=== PATIENT | female | born 1935 | race Caucasian/White ===

== ENCOUNTER 2016-08-12 11:57 | Inpatient (IN) | payer OTHER ==
[2016-08-12 12:07] VITALS: BMI 33.7
--- NOTE | 2016-08-12 12:25 | PDOC ---
History of Present Illness <JoseVivien - Last Filed: 08/12/16 16:10> - General History Source: Patient Exam Limitations: No Limitations - History of Present Illness Initial Comments: 08/12/16 12:32 81y F hx of htn, sz, cad? presents with celluitis, pt had lower extermitiy swelling and edema for the past week and since friday there was overlying erythema and increased amoun tof pain when she ambulates .she went to her PMD today who sent her to the ED for further mangaement of her cellulitis. THe pt denies any fever/chils, cp, sob, n/v, generalized weaknes,s diarrhea, dysuria. pt states she has had multiple vascular surgeries in the past. <Randal Rodriguez - Last Filed: 08/12/16 17:42> - General Chief Complaint: Wound Stated Complaint: PCP SENT, LEG PAIN Time Seen by Provider: 08/12/16 12:14 Past History <Vivien Garcia - Last Filed: 08/12/16 16:10> - Past Medical History Cardiac Disorders: Yes HTN: Yes Seizures: Yes - Surgical History Orthopedic Surgery: Yes (?hip surgery) - Psycho/Social/Smoking Cessation Hx Suicidal Ideation: No Smoking History: Former smoker Have you smoked in the past 12 months: No Information on smoking cessation initiated: No Hx Alcohol Use: No Drug/Substance Use Hx: No <Randal Rodriguez - Last Filed: 08/12/16 17:42> - Past Medical History Allergies/Adverse Reactions: Allergies Allergy/AdvReac Type Severity Reaction Status Date / Time No Known Allergies Allergy Verified 08/12/16 12:07 Home Medications: Ambulatory Orders NK [No Known Home Medication] 08/12/16 Review of Systems - Review of Systems Able to Perform ROS?: Yes Comments:: 08/12/16 12:33 Constitutional - no reported Fever, Chills, weakness, HEENT: no reported vision changes, sore throat Respiratory: no reported cough, sob, hemoptysis Cardiac: no reported chest pain, palpitations, light headedness, Abd/GI: no reported abd pain, nausea, vomiting, blood per rectum, melena, diarrhea : no reported dysuria, frequency, discharge Musculskelatal - +leg swelling, redness, no reported back pain, joint swelling skin - no reported bruising, erythema, rash neurological: no reported headache, numbness, focal weakness, tingling, ataxia, weakness hematologic: no reported anemia, easy bruising, easy bleeding <JenniferRandal - Last Filed: 08/12/16 17:42> *Physical Exam - Vital Signs Last Vital Signs Temp Pulse Resp BP Pulse Ox 97.7 F 107 H 18 149/88 93 L 08/12/16 12:02 08/12/16 12:02 08/12/16 12:02 08/12/16 12:02 08/12/16 12:15 <Vivien Garcia - Last Filed: 08/12/16 16:10> - Vital Signs Last Vital Signs Temp Pulse Resp BP Pulse Ox 97.7 F 107 H 18 149/88 93 L 08/12/16 12:02 08/12/16 12:02 08/12/16 12:02 08/12/16 12:02 08/12/16 12:02 - Physical Exam Comments: 08/12/16 12:34 GENERAL: The patient is awake, alert, and fully oriented, Nontoxic - in no acute distress. HEAD: Normocephalic, atraumatic. EYES: extraocular movements intact, sclera anicteric, conjunctiva clear. ENT: Normal voice, Moist mucous membranes. NECK: Normal range of motion, supple LUNGS: Breath sounds equal, clear to auscultation bilaterally. No wheezes, no rhonchi, no rales. HEART: Regular rate and rhythm, normal S1 and S2 without murmur, rub or gallop. ABDOMEN: Soft, nontender, normoactive bowel sounds. No guarding, no rebound. No CVA tenderness EXTREMITIES: +3 pitting edema with overlying erythema/induration, TTP b/l, L>R NEUROLOGICAL: No facial assymetry, Normal speech, PSYCH: Normal mood, normal affect. SKIN: Warm, Dry, normal turgor, <Ilya Rodriguezan - Last Filed: 08/12/16 17:42> Heart Score/ECG Review - ECG Impressions Comment:: 08/12/16 17:40 Twelve-lead EKG was performed and reviewed by me. Irregulraly irregular HR of 90 afib <JenniferRandal - Last Filed: 08/12/16 17:42> ED Treatment Course - LABORATORY CBC & Chemistry Diagram: 08/12/16 12:30 08/12/16 13:20 - ADDITIONAL ORDERS Additional order review: Laboratory Results 08/12/16 08/12/16 08/12/16 14:30 13:20 12:30 Sodium 141 Cancelled Potassium 5.5 H Cancelled Chloride 104 Cancelled Carbon Dioxide 28 Cancelled Anion Gap 9 Cancelled BUN 17 Cancelled Creatinine 0.8 Cancelled Creat Clearance w eGFR > 60 Cancelled Random Glucose 85 Cancelled Calcium 8.1 L Cancelled Total Bilirubin 0.9 Cancelled AST 62 H Cancelled ALT 45 Cancelled Alkaline Phosphatase 68 Cancelled B-Natriuretic Peptide Cancelled 2456.58 H Total Protein 7.0 Cancelled Albumin 3.2 L Cancelled 08/12/16 12:30 RBC 4.05 MCV 91.5 MCHC 33.0 RDW 13.4 MPV 8.7 Neutrophils % 76.8 Lymphocytes % 11.0 Monocytes % 10.0 Eosinophils % 1.6 Basophils % 0.6 - RADIOLOGY Radiograph Interpretation: 08/12/16 15:15 EXAM: RAD/CHEST X-RAY PORTABLE IMPRESSION: Imaging reveals rotation to the right, large heart, tortuous aorta, prominent hilar markings with some central congestive changes and increased markings at the right base which could represent a very early infiltrate. There is some atelectasis at the bases as well. The bones and soft tissues are intact. Correlation follow-up recommended. <Vivien Garcia - Last Filed: 08/12/16 16:10> - LABORATORY CBC & Chemistry Diagram: 08/12/16 12:30 08/12/16 13:20 - RADIOLOGY Radiology Studies Ordered: Category Date Time Status CHEST X-RAY PORTABLE* [RAD] Stat Radiology 08/12/16 12:25 Ordered <Randal Rodriguez - Last Filed: 08/12/16 17:42> Medical Decision Making - Medical Decision Making 08/12/16 14:59 A call was placed to Dr. Dana Gaviria. 08/12/16 15:33 Second call placed to Dr. Dana Gaviria. 08/12/16 16:08 Third call placed to Dr. Dana Gaviria. 08/12/16 16:[address] Dana Gaviria. Case was discussed. <Vivien Garcia - Last Filed: 08/12/16 16:10> - Medical Decision Making 08/12/16 14:35 81y F sent to the ED for evaluation of lower exterimty edema as well as overlying erythema/edema and concern for cllulitis. no systemic complaints. on exam pt does have celluitis howver his EKG also noted for new onset afib - suspect singh tmay be the inciting even tof her LE edema that was superinfected. will start pt on heparin will obtain US to r/o dvt 08/12/16 17:[address] gaviria agree with admission for further mangameenta of cellulitis and afib also agrees with heparinization will admit to telemetry duplex negative fo DVT Case discussed in detail with admitting physician including history, physical exam and ancillary studies. Admitting physician has assumed care for the patient, will follow all pending diagnostics and will complete the evaluation and treatment. <Randal Rodriguez - Last Filed: 08/12/16 17:42> *DC/Admit/Observation/Transfer - Attestations Scribe Attestion: 08/12/16 15:18 Documentation prepared by Vivien Garcia, acting as biomedical electronics technician for Randal Rodriguez MD. <Vivien Garcia - Last Filed: 08/12/16 16:10> - Discharge Dispostion Admit: Yes <Randal Rodriguez - Last Filed: 08/12/16 17:42> Diagnosis at time of Disposition: Cellulitis of leg without foot, left, Cellulitis of leg without foot, right Atrial fibrillation Qualifiers: Atrial fibrillation type: unspecified Qualified Code(s): I48.91 - Unspecified atrial fibrillation - Referrals
[2016-08-12 12:52] LABS: BASOPHIL 0.6 % (0-2.0); EOSINOPHIL 1.6 % (0-4.5); MCH 30.2 pg (25.7-33.7); MEAN CELL VOLUME 91.5 fl (80-96); MEAN PLT VOLUME 8.7 fl (7.5-11.1); NEUTROPHILS 76.8 % (42.8-82.8); PLATELET COUNT 281 K/MM3 (134-434); RDW 13.4 % (11.6-15.6)
[2016-08-12 13:55] LABS: ALBUMIN 3.2 g/dl (3.4-5.0); ALK PHOS 68 U/L (45-117); ANION GAP 9 (8-16); BILIRUBIN,TOTAL 0.9 mg/dL (0.2-1.0); CALCIUM 8.1 mg/dL (8.5-10.1); CO2 28 mmol/L (21-32); CREATININE 0.8 mg/dL (0.55-1.02); GLUCOSE,RANDOM 85 mg/dL (74-106); SGPT/ALT 45 U/L (12-78)
[2016-08-12 14:03] LABS: SGOT/AST 62 U/L (15-37)
[2016-08-12] MEDS ORDERED: VANCOMYCIN 1,000 MG in DEXTROSE 5%-WATER - 250 ML IVPB ONE (14:34)
[2016-08-12 15:07] LABS: INR 1.2 (0.82-1.09); PROTHROMBIN TIME (PATIENT) 13.3 SEC (9.98-11.88)
[2016-08-12] MEDS ORDERED: HEPARIN NA (PORCINE) 5,000 UNITS/ML 1ML VIAL IVPUSH ONE (15:54)
--- NOTE | 2016-08-12 16:26 | HP ---
Admitting History and Physical - Primary Care Physician PCP: ? - Admission Chief Complaint: CELLULITIS. CONSTIPATION History Source: Patient, Medical Record Limitations to Obtaining History: No Limitations - Smoking History Smoking history: Former smoker Have you smoked in the past 12 months: No - Alcohol/Substance Use Hx Alcohol Use: No Home Medications - Allergies Allergies/Adverse Reactions: Allergies Allergy/AdvReac Type Severity Reaction Status Date / Time No Known Allergies Allergy Verified 08/12/16 12:07 - Home Medications Home Medications: Ambulatory Orders NK [No Known Home Medication] 08/12/16 Review of Systems - Review of Systems Constitutional: denies: Chills, Fever Cardiovascular: denies: Chest Pain Respiratory: denies: SOB Gastrointestinal: denies: Abdominal Pain Integumentary: reports: Blister, Erythema, Rash Physical Examination Vital Signs: Vital Signs Temperature 97.7 F 08/12/16 12:02 Pulse Rate 107 H 08/12/16 12:02 Respiratory Rate 18 08/12/16 12:02 Blood Pressure 149/88 08/12/16 12:02 O2 Sat by Pulse Oximetry (%) 93 L 08/12/16 12:15 Findings/Remarks: EXAMINED IN ED ANXIOUS C/O NO BM LOOKS UNCOMFORTABLE Cardiovascular: Yes: Regular Rate and Rhythm, S1, S2 Respiratory: Yes: CTA Bilaterally Gastrointestinal: Yes: Normal Bowel Sounds, Soft Edema: Yes Integumentary: Yes: Erythema, Other (BLISTERING. B/L LOWER LEGS) Imaging - Results Chest X-ray: Report Reviewed Ultrasound: Report Reviewed Problem List - Problems (1) Atrial fibrillation Code(s): I48.91 - UNSPECIFIED ATRIAL FIBRILLATION Qualifiers: Qualified Code(s): I48.91 - Unspecified atrial fibrillation (2) Cellulitis of leg without foot, left Code(s): L03.116 - CELLULITIS OF LEFT LOWER LIMB (3) Cellulitis of leg without foot, right Code(s): L03.115 - CELLULITIS OF RIGHT LOWER LIMB (4) HTN (hypertension) with goal to be determined Code(s): I10 - ESSENTIAL (PRIMARY) HYPERTENSION (5) Seizure Code(s): R56.9 - UNSPECIFIED CONVULSIONS Assessment/Plan 81y F hx of htn, sz, cad? presents with celluitis, pt had lower extermitiy swelling and edema for the past week and since friday there was overlying erythema and increased amoun tof pain when she ambulates .she went to her PMD today who sent her to the ED for further mangaement of her cellulitis. THe pt denies any fever/chils, cp, sob, n/v, generalized weaknes,s diarrhea, dysuria. pt states she has had multiple vascular surgeries in the past. (1) Atrial fibrillation Code(s): I48.91 - UNSPECIFIED ATRIAL FIBRILLATION Qualifiers: Atrial fibrillation type: unspecified Qualified Code(s): I48.91 - Unspecified atrial fibrillation IV HEPARIN (2) Cellulitis of leg without foot, left Code(s): L03.116 - CELLULITIS OF LEFT LOWER LIMB IV ABx ID CONSULTED DUPLEX -> NO DVT. GROIN 3cm LN DR KAY ON CASE -> BIOPSY? (3) Cellulitis of leg without foot, right Code(s): L03.115 - CELLULITIS OF RIGHT LOWER LIMB (4) HTN (hypertension) with goal to be determined Code(s): I10 - ESSENTIAL (PRIMARY) HYPERTENSION CARDIO CONSULTED F/U LABS (5) Seizure Code(s): R56.9 - UNSPECIFIED CONVULSIONS NOT ON AED ZOO CARETAKER FM
[2016-08-12] MEDS ORDERED: HEPARIN NA (PORCINE) 5,000 UNITS/ML 1ML VIAL ONE ×2 (16:51→23:08)
[2016-08-12] MEDS ORDERED: VANCOMYCIN 1 GRAM (PRE-DOCKED) 250 ML IVPB ONE (16:51)
[2016-08-12] MEDS: HEPARIN INFUSION - 500 ML IVPB SCH ×2 (16:52→23:13)
[2016-08-12] MEDS ORDERED: HEPARIN INFUSION - 500 ML IVPB ONE (16:52)
[2016-08-12] MEDS ORDERED: SODIUM PHOSPHATE/NA BIPHOS 133 ML ENEMA PR PRN (17:55)
--- NOTE | 2016-08-12 17:56 | CONSULT ---
- Consultation REQUESTING PROVIDER: CONSULT REQUEST: We have been asked to surgically evaluate this patient for ( specify). PCP: Dana Serna HISTORY OF PRESENT ILLNESS: Called to mari 81yo female with PMHx noted below. Sent to [facility] ED from her PCPs office for further evaluation of new onset afib as well as worsening of her b/l LE cellulitis. Pt has bilat LE swelling and edema for the past week and since friday there was overlying erythema and increased amount of pain when she ambulates. Denies n/v/f/c, diaphoresis, generalized weakness. Denies CP, palpitations, irregular heart rate or ightheadedness. Denies SOB, [place] or wheezing. Denies flank pain or hematuria. Denies paresthesias, dizziness or unsteady gait (albeit painful). Denies recent trauma to her LE. Venous duplex 08/12: negative for dvt. + soft tissue edema b/l le. PMHx: HTN, Sz PSHx: Hip surgery - femoral rods. Unknown surgery to LLE (calf) HOME MEDS: Denies any. ALLERGIES: NKDA ROS: CONSTITUTIONAL: Absent: See above. fever, chills, , malaise, loss of appetite, weight change CARDIOVASCULAR: Absent: See above. syncope RESPIRATORY: Absent: See above. stridor, hemoptysis GASTROINTESTINAL:Absent: See above. abd pain, abdominal distension, constipation , melena, hematochezia GENITOURINARY: Absent: See above. dysuria, frequency, urgency, hesitancy MUSCULOSKELETAL: Absent: myalgia, arthralgia, back pain, neck pain SKIN: Absent: See above. HEMATOLOGIC/IMMUNOLOGIC: Absent: easy bleeding, easy bruising, lymphadenopathy NEUROLOGIC: Absent: See above. BALES, focal weakness, seizure, mental status changes, PSYCHIATRIC: Absent: anxiety, depression, suicidal or homicidal ideation, hallucinations. PE: GENERAL: Awake, alert, oriented, in no acute distress. HEAD: Normal with no signs of trauma. EYES: PERRL, sclera anicteric, conjunctiva clear. NECK: Normal ROM, supple without lymphadenopathy, JVD, or masses. LUNGS: CTA b/l anteriorly HEART: afib ABDOMEN: Soft, NT. ND, Normoactive bs x4, no guarding, no rebound, no masses. No organomegaly. MUSCULOSKELETAL: Normal ROM at all joints. No bony deformities or tenderness. No CVA tenderness. UE: 2+ pulses, warm, well-perfused. No cyanosis. Cap refill <2 seconds. No peripheral edema. LE: Palpable DP/PT bilat. Severe cellultis from ankles moving proximally to just below knees. Warm to touch. Erythematous. Serous drainage. No open lesions. NEUROLOGICAL: Normal speech, gait not observed. PSYCH: Cooperative. Good eye contact. Appropriate mood and affect. SKIN: Last Vital Signs Temp Pulse Resp BP Pulse Ox 97.7 F 107 H 18 149/88 93 L 08/12/16 12:02 08/12/16 12:02 08/12/16 12:02 08/12/16 12:02 08/12/16 12:15 CBC, BMP 08/12/16 12:30 08/12/16 13:20 INR, PTT INR 1.20 (0.82-1.09) H 08/12/16 13:40 Hepatic Panel Total Bilirubin 0.9 mg/dL (0.2-1.0) 08/12/16 13:20 AST 62 U/L (15-37) H 08/12/16 13:20 ALT 45 U/L (12-78) 08/12/16 13:20 Alkaline Phosphatase 68 U/L (45-117) 08/12/16 13:20 Albumin 3.2 g/dl (3.4-5.0) L 08/12/16 13:20 Assessment/Plan: Severe cellultis - IV abx - ID consult - Recommend Silvadene to both LE, wrap kerlix. No compression dressings at this time as we need to monitor erythematous skin - bilat LE elevation - No surgical intervention at this time - Above plan discussed with Dr. Archibald and agrees. Visit type - Case Type Case Type: ED Admission - Emergency Emergency Visit: Yes ED Registration Date: 08/12/16 Care time: The patient presented to the Emergency Department on the above date and was hospitalized for further evaluation of their emergent condition. - New patient This patient is new to me today: Yes Date on this admission: 08/12/16
[2016-08-12] MEDS: POLYETHYLENE GLYCOL 3350 119 GM BTL PO SCH (19:09)
[2016-08-12] MEDS: SENNOSIDES 8.6MG TABLET (FP) PO SCH (22:36)
[2016-08-12] MEDS ORDERED: HEPARIN NA (PORCINE) 5,000 UNITS/ML 1ML VIAL IVPUSH PRN ×2 (23:42)
--- NOTE | 2016-08-13 00:21 | EKG ---
Test Reason : Blood Pressure : / mmHG Vent. Rate : 090 BPM Atrial Rate : 052 BPM P-R Int : 000 ms QRS Dur : 088 ms QT Int : 398 ms P-R-T Axes : 000 001 009 degrees QTc Int : 486 ms ATRIAL FIBRILLATION ABNORMAL ECG NO PREVIOUS ECGS AVAILABLE Confirmed by YVAN LEVIN MD ([id number]) on 08/13/2016 12:20:56 AM Referred By: Confirmed By:YVAN LEVIN MD
[2016-08-13 07:17] LABS: BASOPHIL 0.7 % (0-2.0); EOSINOPHIL 1.6 % (0-4.5); MCH 30.7 pg (25.7-33.7); MCHC 33.7 g/dl (32.0-36.0); MEAN CELL VOLUME 90.9 fl (80-96); MEAN PLT VOLUME 8.8 fl (7.5-11.1); PLATELET COUNT 273 K/MM3 (134-434); RDW 13.5 % (11.6-15.6); WHITE BLOOD COUNT 8.8 K/mm3 (4.0-10.0)
[2016-08-13 07:40] LABS: ALBUMIN 2.8 g/dl (3.4-5.0); ANION GAP 10 (8-16); CALCIUM 7.8 mg/dL (8.5-10.1); CO2 27 mmol/L (21-32); CREATININE 0.6 mg/dL (0.55-1.02); GLUCOSE,RANDOM 105 mg/dL (74-106); SGOT/AST 22 U/L (15-37); SGPT/ALT 33 U/L (12-78)
[2016-08-13 07:44] LABS: ALK PHOS 66 U/L (45-117); BILIRUBIN,TOTAL 1.1 mg/dL (0.2-1.0); TOT PROT 6.2 g/dl (6.4-8.2); TROPONIN I < 0.02 ng/ml (0.00-0.05)
[2016-08-13 08:29] LABS: CHOLESTEROL 156 mg/dL (50-200); LDL CHOLESTEROL (ONLY SJRH) 96 mg/dL (5-100)
[2016-08-13] MEDS: HEPARIN INFUSION - 500 ML IVPB SCH ×2 (09:09→12:27)
[2016-08-13] MEDS: POLYETHYLENE GLYCOL 3350 119 GM BTL PO SCH (09:10)
[2016-08-13 09:35] LABS: URINE APPEARANCE CLEAR; URINE BILIRUBIN NEGATIVE (NEGATIVE); URINE COLOR YELLOW; URINE GLUCOSE (UA) NEGATIVE (NEGATIVE); URINE KETONE NEGATIVE (NEGATIVE); URINE LEUK ESTERASE NEGATIVE (NEGATIVE); URINE NITRITE NEGATIVE (NEGATIVE); URINE PROTEIN NEGATIVE (NEGATIVE); URINE UROBILINOGEN NEGATIVE E.U./dl (0.2-1.0)
[2016-08-13 09:36] LABS: URINE BLOOD 2+ (NEGATIVE)
[2016-08-13 09:38] LABS: URINE RBC 4 /hpf (0-3); URINE WBC 2 /hpf (3-5)
[2016-08-13] MEDS ORDERED: INFLUENZA VACCINE 45 MCG/0.5 ML (MDV 16-17) IM ONE (10:00)
[2016-08-13] MEDS ORDERED: PNEUMOC 13-VAL CONJ-DIP CRM/PF 0.5 ML DISP.SYRIN IM ONE (10:00)
--- NOTE | 2016-08-13 10:02 | PN ---
Progress Note (short form) - Note Progress Note: ID consult dictated imp/reccd 81 year old female from home (lives alone) with SOB/LE edema/bilateral LE erythema went to her PMD and was found to be in new onset afib no history of recent admissions to the hospital, no history of MRSA no recent antibiotics no fevers or chills normal WBC bilateral cellulitis bilateral edema new onset AFIB CHF f/u cultures cefazolin cardiology consult echo
--- NOTE | 2016-08-13 10:48 | CONS ---
DATE OF CONSULTATION: REQUESTING PHYSICIAN: Dana Serna MD HISTORY: This is a 81-year-old woman. She was sent from her PMDs office with new onset atrial fibrillation. She went to see him, and she had bilateral leg swelling as well as erythema of the legs. She was short of breath and noted to be in atrial fibrillation, which was new. She was sent to the emergency room. She is a very poor historian. She states she lives alone. She is . She uses a walker. Otherwise, she has been well. She appears mildly short of breath, which she says is her baseline. She denies any chest pain or abdominal pain. She has had no fever or chills. She has had no scratches to her legs. She has no pets. There has been no diarrhea or dysuria. PAST MEDICAL HISTORY: Noted to be coronary artery disease, hypertension. She has a history of seizures. She has had bilateral hip surgery. She states she [facility] and that she has had surgery on her left leg many years ago, and it is unclear why. FAMILY HISTORY: Noncontributory. ALLERGIES: She has no known drug allergies. MEDICATIONS: She does not know what medications she takes. SOCIAL HISTORY: She is . She lives alone. She uses a walker. She is a former smoker. There is no history of any substance abuse. REVIEW OF SYSTEMS: She notes intermittent cough. She does not know if she has had her vaccines. She has no nausea, vomiting, diarrhea, dysuria, chest pain, abdominal pain, fevers, or chills. She has no pets at home. PHYSICAL EXAMINATION: Vital Signs: She is afebrile. Temperature is 98.1, T-max is 99.5, pulse 95, blood pressure 122/70, respiratory rate 22. She is saturating 95% on 2 L. HEENT: She is normocephalic. Eyes are anicteric. Neck: Supple. Lungs: Bibasilar crackles. Heart: Tachycardic. Abdomen: Soft and nontender. Extremities: Notable for bilateral lower extremity cellulitis. She has bilateral dorsalis pedis pulses. Legs are erythema from above the ankle to below the knees bilaterally. She has leg swelling as well. LABORATORY DATA: Her labs are notable for a white count 8.8, hemoglobin 11.9, platelets 273, INR 1.2, BUN 13, creatinine 0.6. LFTs are normal. Urinalysis is negative for leukocyte esterase and has 2 white cells. Blood and urine cultures are pending. Duplex studies of her legs: There is no evidence of DVT bilaterally. Chest x-ray shows cardiomegaly and some mild congestion and atelectasis of both bases. In summary, this is a 81-year-old woman with bilateral cellulitis, bilateral lower extremity edema, new onset atrial fibrillation, and I suspect CHF. I would follow up her cultures, which have been sent. I would treat her with cefazolin. There is no history of any recent antibiotics. No history of recent admissions to the hospital. No history of MRSA. On exam, there is no history of any abscess formation. She appears to have cellulitis of both her legs. Would follow up with Cardiology and would check an echocardiogram. Further recommendations to follow based on clinical course. Saleem [id number]
[2016-08-13] MEDS: CEFAZOLIN 2 GM/D5W 50 ML IVPB SCH ×2 (11:15→17:25)
--- NOTE | 2016-08-13 11:31 | PN ---
Progress Note (short form) - Note Progress Note: PULMONARY CONSULTATION DICTATED 08/13/16 IMP DYSPNEA CHF NEW ONSET AFIB BILATERAL LOWER EXT CELLULITIS ASHD HTN H/O SEIZURE DISORDER PLAN ANTIBIOTICS PER ID LASIX ANTICOAGULATION NASAL O2 INHALED BRONCHODILATORS PRN ECHO RATE CONTROL F/U CHEST X-RAY DR LANCASTER
--- NOTE | 2016-08-13 11:44 | PN ---
Progress Note (short form) - Note Progress Note: Pt seen and examined this am. She has no complaints pain. Vital Signs Period Temp Pulse Resp BP Sys/Silver Pulse Ox Last 24 Hr -99.5 F-98.1 F 95-113 18-22 122-149/70-88 93-96 PE: GEN: alert and appears comfortable LE: +2 dp pulses, erythema from the knee to the ankle b/l. On the left side he erythema seems to be decreased based on skin marking. No open to the skin or drainage noted. CBC, BMP 08/13/16 05:35 08/13/16 05:35 A/P: 81 yo female with cellulitis Cont IV abx as per ID, IV cefazolin Surgery to follow the patient Leg elevation at all times, in bed an oob to chair.
--- NOTE | 2016-08-13 12:13 | CONS ---
DATE OF CONSULTATION: 08/13/2016 REFERRING PHYSICIAN: Dana Serna MD HISTORY: The patient is a 81-year-old white female with a past medical history of ASHD, hypertension, seizures, history of bilateral hip surgery and also a history of lower extremity edema and currently followed at the [facility], nonsmoker admitted to [facility] with increasing shortness of breath, increasing lower extremity edema and erythema, and new onset atrial fibrillation. The patient went to Dr. Serna's yesterday with the complaint of increasing shortness of breath and dyspnea on exertion and lower extremity edema. At the time, she was noted to be new onset atrial fibrillation at which time she was advised to go to the emergency room. She denied any complaints of chest pain, nausea, vomiting, diaphoresis, fevers, or chills. Even though she is noted to be in atrial fibrillation, she is also noted to have elevated BMP and felt to be in CHF. She was admitted to telemetry unit for further monitoring. She denies any history of occupational exposures to chemicals or fumes. There is no history of DVT or PE in the past. In the emergency room, she underwent a duplex of lower extremities, which was negative for DVT. She does state that she sleeps on 2 pillows. She is unsure whether or not she has orthopnea. She does complain of dyspnea on exertion. She denies any hemoptysis. She denies any chronic cough. PAST MEDICAL HISTORY: Again, includes ASHD, hypertension. REVIEW OF SYSTEMS: Positive orthopnea. No chest pain, no palpitations. Positive shortness of breath. Positive cough nonproductive. No fevers, no chills. Positive increasing lower extremity edema and erythema. 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 No ETOH. CURRENT MEDICATIONS: Include Ancef, heparin, MiraLAX, Senna, and Fleet enema. PHYSICAL EXAMINATION: General: The patient is a well-developed, well-nourished female. Mildly confused but in no acute distress. Vital Signs: She is currently afebrile. Blood pressure 130/70, respiratory rate 22, O2 saturation 90% on room air and 96% on 2 L. HEENT: Normocephalic and atraumatic. Neck: Supple. Heart: Irregularly irregular with normal S1, S2. Chest: Bilateral crackles. Abdomen: Soft. Bowel sounds are positive. Extremities: Bilateral lower extremity edema and erythema. LABORATORIES: BUN 13, creatinine 0.6. BNP 2456. INR 1.20. WBCs 8.8, hemoglobin 11.9, hematocrit 35.3, platelet count 273,000. Chest x-ray reveals bilateral pulmonary vascular congestion, cardiomegaly, increased markings at the right base. IMPRESSION: 1. Dyspnea most likely secondary to decompensated congestive heart failure. 2. New onset atrial fibrillation 3. Bilateral lower extremity cellulitis. 4. Hypertension. 5. Arteriosclerotic heart disease. PLAN: IV Lasix. Inhaled bronchodilators. Supplemental O2. Obtain follow up chest x-ray. Antibiotic therapy as per Infectious Disease. Echocardiogram. Rate control as per Cardiology. PEG LANCASTER M.D. [id number]
--- NOTE | 2016-08-13 13:57 | CON.CARD ---
Consult Consult Specialty:: Cardiology Referred by:: Dr. Rodriguez, Dr. Neville Reason for Consultation:: New onset atrial fibrillation - History of Present Illness Chief Complaint: Leg swelling and pain, new afib History of Present Illness: 81 yo female with reported HTN (however patient denies this and is currently not on any BP meds), who was admitted with lower extermitiy swelling and pain since last Friday and was sent from PMD's office (Dr. Serna) yesterday to [facility] ED. Patient is currently being treated for cellulitis. In the ED, patient was noted to be in new onset atrial fibrillation. Patient denies chest pain or palpitations, but does report some exertional dyspnea but patient is also not physically active. Denies melena, hematochezia, hematemesis, or hematuria. Patient denies any prior cardiac history. She only reports long standing history of lower extremity edema and was previously under the care a wound clinic at some point in the past. Patient was started on heparin gtt for new onset afib and admitted to telemetry floor. - History Source History Provided By: Patient Limitations to Obtaining History: No Limitations - Past Medical History ...: No - Alcohol/Substance Use Hx Alcohol Use: No - Smoking History Smoking history: Former smoker Have you smoked in the past 12 months: No Home Medications - Allergies Allergies/Adverse Reactions: Allergies Allergy/AdvReac Type Severity Reaction Status Date / Time No Known Allergies Allergy Verified 08/12/16 12:07 - Home Medications Home Medications: Ambulatory Orders NK [No Known Home Medication] 08/12/16 Family Disease History - Family Disease History Family History: Denies (premature CAD or SCD) Family Disease History: CA: Sister (breast cancer) Review of Systems - Review of Systems Constitutional: reports: No Symptoms Eyes: reports: No Symptoms HENT: reports: No Symptoms Neck: reports: No Symptoms Cardiovascular: reports: Edema. denies: Chest Pain, Palpitations, Shortness of Breath Respiratory: reports: No Symptoms Gastrointestinal: reports: No Symptoms Genitourinary: reports: No Symptoms Musculoskeletal: reports: Extremity Pain Integumentary: reports: Erythema (bilateral legs) Neurological: reports: No Symptoms Endocrine: reports: No Symptoms Hematology/Lymphatic: reports: No Symptoms Psychiatric: reports: No Symptoms Vital Signs: Vital Signs Temperature 98 F 08/13/16 09:00 Pulse Rate 96 H 08/13/16 09:00 Respiratory Rate 22 08/13/16 09:00 Blood Pressure 130/70 08/13/16 09:00 O2 Sat by Pulse Oximetry (%) 96 08/13/16 09:00 Constitutional: Yes: Well Nourished, No Distress, Obese Eyes: Yes: Conjunctiva Clear, EOM Intact HENT: Yes: Atraumatic, Normocephalic Respiratory: Yes: CTA Bilaterally Gastrointestinal: Yes: Normal Bowel Sounds, Soft. No: Tenderness JVD: No Heart Sounds: Yes: S1, S2 Murmur: No: Systolic Murmur Extremities: Yes: Erythema (below knees) Edema: Yes Edema: LLE: 2+, RLE: 2+ Neurological: Yes: Alert, Oriented Psychiatric: Yes: WNL - Other Data Labs, Other Data: CBC, BMP 08/13/16 05:35 08/13/16 05:35 INR, PTT INR 1.20 (0.82-1.09) H 08/12/16 13:40 Troponin, BNP 08/13/16 05:35 Troponin I < 0.02 Troponin, BNP 08/13/16 05:35 Troponin I < 0.02 08/12/16 ECG: Atrial fibrillation, no significant ST-T abnormalities Echo: Report Reviewed (08/13/16 Echo: Normal LV size and systolic function. Mild biatrial enlargement. Severe MAC. Mild MR. Mild aortic stenosis (BETTIE 1.1 cm2, but mean gradient only 12.2 mmHg).) Imaging - Results Chest X-ray: Report Reviewed (08/12/16: Increased hilar), Image Reviewed Ultrasound: Report Reviewed (08/12/16 Lower extremity venous Doppler: Negative for DVT) Assessment/Plan 81 yo female with reported HTN (however patient denies this and is currently not on any BP meds), who was admitted with lower extermitiy cellulitis. Patient was also found to be in new onset afib in ED. Currently patient's HR 90-110s. [id number] score = 3 (3.2% annual risk of stroke) Elevated BNP 2456 but patient does not appear to be in gross heart failure based on physical exam (no JVD) and echo results. 08/13/16 Echo demonstrated normal LV systolic function and only mild MR and mild . 08/12/16 Venous duplex negative for DVTs RECS: Currently on heparin gtt. Will change to lovenox 100 mg q12. Given patient's medical coverage, will start patient on coumadin 5 mg po daily for anticoagulation. Titrate as needed for goal INR 2-3. Will start metoprolol tartrate 25 mg po bid for afib rate control. Will uptitrate as needed and switch to long acting form when final dosage finalized. Would not diurese at this time. Will follow. Call with questions.
[2016-08-13 16:18] LABS: INR 1.36 (0.82-1.09); PROTHROMBIN TIME (PATIENT) 15.1 SEC (9.98-11.88)
--- NOTE | 2016-08-13 17:25 | PN ---
Progress Note, Physician Chief Complaint: AWAKE ALERT X 2 CAN BE CONFUSED AT TIMES HISTORY OF SCHYZOTYPICAL/BIPOLAR D/O - Current Medication List Current Medications: Active Medications Albuterol/Ipratropium (Duoneb -) 1 amp NEB Q4H PRN PRN Reason: SHORTNESS OF BREATH Enoxaparin Sodium (Lovenox -) 100 mg SQ Q12H [facility] Cefazolin Sodium/Dextrose (Ancef 2 Gm Premixed Ivpb -) 50 mls @ 100 mls/hr IVPB Q8H-IV [facility] Last Admin: 08/13/16 11:15 Dose: 100 mls/hr Metoprolol Tartrate (Lopressor -) 25 mg PO BID [facility] Polyethylene Glycol (Miralax (For Daily Use) -) 17 gm PO DAILY [facility] Last Admin: 08/13/16 09:10 Dose: 17 gm Senna (Senna -) 2 tab PO HS [facility] Last Admin: 08/12/16 22:36 Dose: 2 tab Sodium Phosphate (Fleet Adult Rectal Enema -) [address] DAILY PRN PRN Reason: CONSTIPATION Warfarin Sodium (Coumadin -) 5 mg PO DAILY@1800 [facility] - Objective Vital Signs: Vital Signs Temperature 98.2 F 08/13/16 16:33 Pulse Rate 96 H 08/13/16 16:33 Respiratory Rate 22 08/13/16 16:33 Blood Pressure 140/79 08/13/16 16:33 O2 Sat by Pulse Oximetry (%) 96 08/13/16 09:00 Constitutional: Yes: Mild Distress Eyes: Yes: WNL HENT: Yes: WNL Neck: Yes: WNL Cardiovascular: Yes: Pulse Irregular Respiratory: Yes: Rhonchi Gastrointestinal: Yes: WNL Genitourinary: Yes: WNL Musculoskeletal: Yes: Joint Stiffness Extremities: Yes: Erythema Edema: Yes Edema: LLE: 1+, RLE: 1+ Peripheral Pulses WNL: Yes Integumentary: Yes: Erythema, Pressure Ulcer, Rash Wound/Incision: Yes: Open to air Neurological: Yes: Weakness ...Motor Strength: LLE, RLE Psychiatric: Yes: Agitated, Other Labs: CBC, BMP 08/13/16 05:35 08/13/16 05:35 INR, PTT INR 1.20 (0.82-1.09) H 08/12/16 13:40 Assessment/Plan CELLULITIS OF B/L LOWER EXTREMITY IV ABX SURGERY AND ID F/U AFIB ON AC AND RATE CONTROL LOVENOX AND METOPROLOL BRIDGE TO COUMADIN SNF
[2016-08-13] MEDS: WARFARIN NA 5 MG TABLET (UD) PO SCH (17:49)
[2016-08-13] MEDS: METOPROLOL TARTRATE 25 MG TABLET (FP) PO SCH (21:29)
[2016-08-13] MEDS: SENNOSIDES 8.6MG TABLET (FP) PO SCH (21:29)
[2016-08-13] MEDS: ENOXAPARIN NA (PORCINE) 100 MG/1 ML DISP.SYRIN SQ SCH (21:30)
[2016-08-13] MEDS: ALBUTEROL SO4 2.5/IPRATROPIUM 0.5 INH SOL 3 ML VIAL.NEB. NEB PRN (22:02)
[2016-08-14] MEDS: CEFAZOLIN 2 GM/D5W 50 ML IVPB SCH ×3 (01:41→17:18)
[2016-08-14 08:13] LABS: INR 1.28 (0.82-1.09); PROTHROMBIN TIME (PATIENT) 14.2 SEC (9.98-11.88)
[2016-08-14] MEDS ORDERED: PT OWN MED DRAWER 7, Y5N ONE (08:31)
[2016-08-14] MEDS: ENOXAPARIN NA (PORCINE) 100 MG/1 ML DISP.SYRIN SQ SCH ×2 (09:47→21:43)
[2016-08-14] MEDS: METOPROLOL TARTRATE 25 MG TABLET (FP) PO SCH (09:47)
[2016-08-14] MEDS: POLYETHYLENE GLYCOL 3350 119 GM BTL PO SCH (09:48)
--- NOTE | 2016-08-14 10:08 | PN ---
Progress Note, Physician Chief Complaint: AWAKE ALERT X 2 +APPETITE - Current Medication List Current Medications: Active Medications Albuterol/Ipratropium (Duoneb -) 1 amp NEB Q4H PRN PRN Reason: SHORTNESS OF BREATH Last Admin: 08/13/16 22:02 Dose: 1 amp Enoxaparin Sodium (Lovenox -) 100 mg SQ Q12H [facility] Last Admin: 08/14/16 09:47 Dose: 100 mg Cefazolin Sodium/Dextrose (Ancef 2 Gm Premixed Ivpb -) 50 mls @ 100 mls/hr IVPB Q8H-IV [facility] Last Admin: 08/14/16 09:46 Dose: 100 mls/hr Metoprolol Tartrate (Lopressor -) 25 mg PO BID [facility] Last Admin: 08/14/16 09:47 Dose: 25 mg Polyethylene Glycol (Miralax (For Daily Use) -) 17 gm PO DAILY [facility] Last Admin: 08/14/16 09:48 Dose: 17 gm Senna (Senna -) 2 tab PO HS [facility] Last Admin: 08/13/16 21:29 Dose: 2 tab Sodium Phosphate (Fleet Adult Rectal Enema -) 133 ml [place] DAILY PRN PRN Reason: CONSTIPATION Warfarin Sodium (Coumadin -) 5 mg PO DAILY@1800 [facility] Last Admin: 08/13/16 17:49 Dose: 5 mg - Objective Vital Signs: Vital Signs Temperature 98.1 F 08/14/16 06:00 Pulse Rate 100 H 08/14/16 06:00 Respiratory Rate 20 08/14/16 06:00 Blood Pressure 163/83 08/14/16 06:00 O2 Sat by Pulse Oximetry (%) 98 08/13/16 21:00 Constitutional: Yes: Mild Distress Eyes: Yes: WNL HENT: Yes: WNL Neck: Yes: WNL Cardiovascular: Yes: Pulse Irregular Respiratory: Yes: WNL Gastrointestinal: Yes: WNL Genitourinary: Yes: WNL Musculoskeletal: Yes: Muscle Weakness Extremities: Yes: Erythema Edema: Yes Peripheral Pulses WNL: Yes Integumentary: Yes: Erythema, Pressure Ulcer, Rash, Skin Tear, Venous Stasis Changes Wound/Incision: Yes: Open to air, Reddened, Excoriated, Unapproximated Neurological: Yes: Confusion, Unsteady Gait, Weakness ...Motor Strength: LLE, RLE Psychiatric: Yes: Agitated, Other Labs: CBC, BMP 08/13/16 05:35 08/13/16 05:35 INR, PTT INR 1.28 (0.82-1.09) H 08/14/16 05:45 Assessment/Plan CELLULITIS OF B/L LOWER EXTREMITY IV ABX SURGERY AND ID F/U AFIB ON AC AND RATE CONTROL LOVENOX AND METOPROLOL BRIDGE TO COUMADIN SNF
[2016-08-14] MEDS: ALBUTEROL SO4 2.5/IPRATROPIUM 0.5 INH SOL 3 ML VIAL.NEB. NEB PRN (10:30)
--- NOTE | 2016-08-14 11:28 | PN ---
Progress Note (short form) - Note Progress Note: less dyspneic more alert Vital Signs Period Temp Pulse Resp BP Sys/Silver Pulse Ox Last 24 Hr 98.1 F-99.0 F 95-101 18-24 140-163/75-87 95-98 cor-rrr lungs decreased bs at bases abd soft,nt ext less erythema of legs, receding from ink varma CBC, BMP 08/13/16 05:35 08/13/16 05:35 Microbiology 08/13/16 06:00 Urine - Urine Clean Catch Urine Culture - Final 08/12/16 12:35 Blood - Peripheral Venous Blood Culture - Preliminary NO GROWTH OBTAINED AFTER 24 HOURS, INCUBATION TO CONTINUE FOR 4 DAYS. 08/12/16 12:35 Blood - Peripheral Venous Blood Culture - Preliminary NO GROWTH OBTAINED AFTER 24 HOURS, INCUBATION TO CONTINUE FOR 4 DAYS. a/p bilateral cellulitis- improving with ancef, to continue new afib chf improved
--- NOTE | 2016-08-14 12:01 | PN ---
Progress Note, Physician History of Present Illness: PULMONARY ALERT,FEELING BETTER,LESS DYSPNEIC,-CP,COUGH. - Current Medication List Current Medications: Active Medications Albuterol/Ipratropium (Duoneb -) 1 amp NEB Q4H PRN PRN Reason: SHORTNESS OF BREATH Last Admin: 08/14/16 10:30 Dose: 1 amp Enoxaparin Sodium (Lovenox -) 100 mg SQ Q12H [facility] Last Admin: 08/14/16 09:47 Dose: 100 mg Cefazolin Sodium/Dextrose (Ancef 2 Gm Premixed Ivpb -) 50 mls @ 100 mls/hr IVPB Q8H-IV [facility] Last Admin: 08/14/16 09:46 Dose: 100 mls/hr Metoprolol Tartrate (Lopressor -) 25 mg PO BID [facility] Last Admin: 08/14/16 09:47 Dose: 25 mg Polyethylene Glycol (Miralax (For Daily Use) -) 17 gm PO DAILY [facility] Last Admin: 08/14/16 09:48 Dose: 17 gm Senna (Senna -) 2 tab PO HS [facility] Last Admin: 08/13/16 21:29 Dose: 2 tab Sodium Phosphate (Fleet Adult Rectal Enema -) 133 ml [place] DAILY PRN PRN Reason: CONSTIPATION Warfarin Sodium (Coumadin -) 5 mg PO DAILY@1800 [facility] Last Admin: 08/13/16 17:49 Dose: 5 mg - Objective Vital Signs: Vital Signs Temperature 98.1 F 08/14/16 06:00 Pulse Rate 95 H 08/14/16 10:29 Respiratory Rate 24 08/14/16 10:00 Blood Pressure 156/87 08/14/16 10:00 O2 Sat by Pulse Oximetry (%) 97 08/14/16 10:29 Constitutional: Yes: Well Nourished, Calm Eyes: Yes: WNL HENT: Yes: WNL Neck: Yes: Supple Cardiovascular: Yes: Pulse Irregular, S1, S2 Respiratory: Yes: Rhonchi (FEW RHONCHI) Gastrointestinal: Yes: Normal Bowel Sounds, Soft Extremities: Yes: Erythema (BILATRAL ERYTHEMA SLIGHTLY IMPROVED) Edema: Yes Labs: CBC, BMP 08/13/16 05:35 08/13/16 05:35 INR, PTT INR 1.28 (0.82-1.09) H 08/14/16 05:45 Assessment/Plan MP DYSPNEA CHF NEW ONSET AFIB BILATERAL LOWER EXT CELLULITIS ASHD HTN H/O SEIZURE DISORDER PLAN CONTINUE ANTIBIOTICS PER ID LASIX PER CARDIOLOGY ANTICOAGULATION NASAL O2 INHALED BRONCHODILATORS PRN RATE CONTROL DR LANCASTER
--- NOTE | 2016-08-14 14:11 | PN ---
Progress Note, Physician History of Present Illness: No new complaints. Denies chest pain, palpitations, or significant dyspnea. - Current Medication List Current Medications: Active Medications Albuterol/Ipratropium (Duoneb -) 1 amp NEB Q4H PRN PRN Reason: SHORTNESS OF BREATH Last Admin: 08/14/16 10:30 Dose: 1 amp Enoxaparin Sodium (Lovenox -) 100 mg SQ Q12H [facility] Last Admin: 08/14/16 09:47 Dose: 100 mg Cefazolin Sodium/Dextrose (Ancef 2 Gm Premixed Ivpb -) 50 mls @ 100 mls/hr IVPB Q8H-IV [facility] Last Admin: 08/14/16 09:46 Dose: 100 mls/hr Metoprolol Tartrate (Lopressor -) 50 mg PO BID [facility] Polyethylene Glycol (Miralax (For Daily Use) -) 17 gm PO DAILY [facility] Last Admin: 08/14/16 09:48 Dose: 17 gm Senna (Senna -) 2 tab PO HS [facility] Last Admin: 08/13/16 21:29 Dose: 2 tab Sodium Phosphate (Fleet Adult Rectal Enema -) 133 ml [place] DAILY PRN PRN Reason: CONSTIPATION Warfarin Sodium (Coumadin -) 5 mg PO DAILY@1800 [facility] Last Admin: 08/13/16 17:49 Dose: 5 mg - Objective Vital Signs: Vital Signs Temperature 98.4 F 08/14/16 09:30 Pulse Rate 95 H 08/14/16 10:29 Respiratory Rate 24 08/14/16 10:00 Blood Pressure 156/87 08/14/16 10:00 O2 Sat by Pulse Oximetry (%) 97 08/14/16 10:29 Constitutional: Yes: No Distress Eyes: Yes: Conjunctiva Clear, EOM Intact HENT: Yes: Atraumatic, Normocephalic Cardiovascular: Yes: Regular Rate and Rhythm. No: JVD Respiratory: Yes: CTA Bilaterally Gastrointestinal: Yes: Normal Bowel Sounds, Soft Extremities: Yes: Erythema (improving in legs bilaterally) Edema: Yes Edema: LLE: 1+, RLE: 1+ Neurological: Yes: Alert, Oriented Labs: CBC, BMP 08/13/16 05:35 08/13/16 05:35 INR, PTT INR 1.28 (0.82-1.09) H 08/14/16 05:45 Assessment/Plan 81 yo female with reported HTN (however patient denies this and is currently not on any BP meds), who was admitted with lower extermitiy cellulitis. Patient was also found to be in new onset afib in ED. Currently patient's HR 90-110s. [id number] score = 3 (3.2% annual risk of stroke) Elevated BNP 2456 but patient does not appear to be in gross heart failure based on physical exam (no JVD) and echo results. 08/13/16 Echo demonstrated normal LV systolic function and only mild MR and mild . 08/12/16 Venous duplex negative for DVTs RECS: Continue lovenox 100 mg q12. May discontinue when INR therapeutic or upon discharge from hospital. Given patient's medical coverage, will start patient on coumadin 5 mg po daily for anticoagulation. Titrate as needed for goal INR 2-3. Will increase metoprolol tartrate to 50 mg po bid for afib rate control. Will uptitrate as needed and switch to long acting form when final dosage finalized. Will follow. Call with questions. Discharge planning as per primary care team.
[2016-08-14] MEDS: WARFARIN NA 5 MG TABLET (UD) PO SCH (17:18)
--- NOTE | 2016-08-14 19:16 | PN ---
Progress Note (short form) - Note Progress Note: Vascular Surgery Pt seen and examined. Bilateral lower ext cellulitis much better. Cont ambulation. Silvadene to both legs daily. Matthew Archibald DO
[2016-08-14] MEDS: SENNOSIDES 8.6MG TABLET (FP) PO SCH (21:43)
[2016-08-14] MEDS: SILVER SULFADIAZINE 1% TOP CREAM 50 GM JAR TP SCH (21:43)
[2016-08-14] MEDS: METOPROLOL TARTRATE 50 MG TABLET (FP) PO SCH (21:43)
[2016-08-15] MEDS: CEFAZOLIN 2 GM/D5W 50 ML IVPB SCH ×3 (01:01→17:15)
[2016-08-15 08:23] LABS: MCH 30.7 pg (25.7-33.7); MCHC 33.7 g/dl (32.0-36.0); MEAN CELL VOLUME 91.1 fl (80-96); MEAN PLT VOLUME 9.1 fl (7.5-11.1); PLATELET COUNT 307 K/MM3 (134-434); RDW 13.7 % (11.6-15.6); WHITE BLOOD COUNT 7.2 K/mm3 (4.0-10.0)
[2016-08-15 08:36] LABS: INR 1.35 (0.82-1.09); PROTHROMBIN TIME (PATIENT) 14.9 SEC (9.98-11.88)
[2016-08-15 08:55] LABS: ALBUMIN 3.1 g/dl (3.4-5.0); ANION GAP 8 (8-16); BILIRUBIN,TOTAL 0.7 mg/dL (0.2-1.0); CALCIUM 8.4 mg/dL (8.5-10.1); CO2 28 mmol/L (21-32); CREATININE 0.7 mg/dL (0.55-1.02); GLUCOSE,RANDOM 90 mg/dL (74-106); SGOT/AST 24 U/L (15-37); SGPT/ALT 32 U/L (12-78); TOT PROT 6.6 g/dl (6.4-8.2)
[2016-08-15 08:56] LABS: ALK PHOS 82 U/L (45-117)
[2016-08-15] MEDS: METOPROLOL TARTRATE 50 MG TABLET (FP) PO SCH ×2 (09:59→22:23)
[2016-08-15] MEDS: POLYETHYLENE GLYCOL 3350 119 GM BTL PO SCH (09:59)
[2016-08-15] MEDS: ENOXAPARIN NA (PORCINE) 100 MG/1 ML DISP.SYRIN SQ SCH ×2 (09:59→22:24)
--- NOTE | 2016-08-15 11:28 | PN ---
Progress Note, Physician History of Present Illness: PULMONARY ALERT,NAD,DYSPNEA IMPROVING - Current Medication List Current Medications: Active Medications Albuterol/Ipratropium (Duoneb -) 1 amp NEB Q4H PRN PRN Reason: SHORTNESS OF BREATH Last Admin: 08/14/16 10:30 Dose: 1 amp Enoxaparin Sodium (Lovenox -) 100 mg SQ Q12H [facility] Last Admin: 08/15/16 09:59 Dose: 100 mg Cefazolin Sodium/Dextrose (Ancef 2 Gm Premixed Ivpb -) 50 mls @ 100 mls/hr IVPB Q8H-IV [facility] Last Admin: 08/15/16 09:59 Dose: 100 mls/hr Metoprolol Tartrate (Lopressor -) 50 mg PO BID [facility] Last Admin: 08/15/16 09:59 Dose: 50 mg Polyethylene Glycol (Miralax (For Daily Use) -) 17 gm PO DAILY [facility] Last Admin: 08/15/16 09:59 Dose: 17 gm Senna (Senna -) 2 tab PO HS [facility] Last Admin: 08/14/16 21:43 Dose: 2 tab Silver Sulfadiazine (Silvadene -) 1 applic TP DAILY [facility] Last Admin: 08/14/16 21:43 Dose: 1 applic Sodium Phosphate (Fleet Adult Rectal Enema -) 133 ml [place] DAILY PRN PRN Reason: CONSTIPATION Warfarin Sodium (Coumadin -) 5 mg PO DAILY@1800 [facility] Last Admin: 08/14/16 17:18 Dose: 5 mg - Objective Vital Signs: Vital Signs Temperature 97.7 F 08/15/16 06:00 Pulse Rate 90 08/15/16 06:00 Respiratory Rate 18 08/15/16 06:00 Blood Pressure 152/98 08/15/16 06:00 O2 Sat by Pulse Oximetry (%) 94 L 08/14/16 21:00 Constitutional: Yes: Well Nourished, Calm Eyes: Yes: WNL HENT: Yes: WNL Neck: Yes: WNL Cardiovascular: Yes: Pulse Irregular, S1, S2 Respiratory: Yes: Rales (BIBASILA CRACKLES) Gastrointestinal: Yes: Normal Bowel Sounds, Soft Extremities: Yes: Erythema (LESS ERYTHEMA BILATERALLY) Edema: Yes Labs: CBC, BMP 08/15/16 06:00 08/15/16 06:00 INR, PTT INR 1.35 (0.82-1.09) H 08/15/16 06:00 Assessment/Plan MP DYSPNEA IMPROVING CHF NEW ONSET AFIB BILATERAL LOWER EXT CELLULITIS ASHD HTN H/O SEIZURE DISORDER PLAN CONTINUE ANTIBIOTICS PER ID ANTICOAGULATION NASAL O2 INHALED BRONCHODILATORS PRN RATE CONTROL CHEST X-RAY TODAY DR LANCASTER
[2016-08-15] MEDS: SILVER SULFADIAZINE 1% TOP CREAM 50 GM JAR TP SCH (14:00)
[2016-08-15] MEDS: WARFARIN NA 5 MG TABLET (UD) PO SCH (17:15)
--- NOTE | 2016-08-15 19:02 | PN ---
Progress Note, Physician Chief Complaint: AWAKE ALERT X 2 +APPETITE - Current Medication List Current Medications: Active Medications Albuterol/Ipratropium (Duoneb -) 1 amp NEB Q4H PRN PRN Reason: SHORTNESS OF BREATH Last Admin: 08/14/16 10:30 Dose: 1 amp Enoxaparin Sodium (Lovenox -) 100 mg SQ Q12H [facility] Last Admin: 08/15/16 09:59 Dose: 100 mg Cefazolin Sodium/Dextrose (Ancef 2 Gm Premixed Ivpb -) 50 mls @ 100 mls/hr IVPB Q8H-IV [facility] Last Admin: 08/15/16 17:15 Dose: 100 mls/hr Metoprolol Tartrate (Lopressor -) 50 mg PO BID [facility] Last Admin: 08/15/16 09:59 Dose: 50 mg Polyethylene Glycol (Miralax (For Daily Use) -) 17 gm PO DAILY [facility] Last Admin: 08/15/16 09:59 Dose: 17 gm Senna (Senna -) 2 tab PO HS [facility] Last Admin: 08/14/16 21:43 Dose: 2 tab Silver Sulfadiazine (Silvadene -) 1 applic TP DAILY [facility] Last Admin: 08/15/16 14:00 Dose: 1 applic Sodium Phosphate (Fleet Adult Rectal Enema -) 133 ml [place] DAILY PRN PRN Reason: CONSTIPATION Warfarin Sodium (Coumadin -) 5 mg PO DAILY@1800 [facility] Last Admin: 08/15/16 17:15 Dose: 5 mg - Objective Vital Signs: Vital Signs Temperature 98.2 F 08/15/16 15:58 Pulse Rate 96 H 08/15/16 17:56 Respiratory Rate 20 08/15/16 17:56 Blood Pressure 151/83 08/15/16 17:56 O2 Sat by Pulse Oximetry (%) 95 08/15/16 10:00 Constitutional: Yes: No Distress Eyes: Yes: WNL HENT: Yes: WNL Neck: Yes: WNL Cardiovascular: Yes: Pulse Irregular Respiratory: Yes: WNL Gastrointestinal: Yes: WNL Genitourinary: Yes: WNL Musculoskeletal: Yes: Muscle Weakness Extremities: Yes: Erythema Edema: Yes Edema: LLE: Trace, RLE: Trace Peripheral Pulses WNL: Yes Integumentary: Yes: Erythema, Pressure Ulcer, Rash, Skin Tear, Venous Stasis Changes Wound/Incision: Yes: Open to air, Reddened Neurological: Yes: Pre-Existing Deficit ...Motor Strength: LLE, RLE Psychiatric: Yes: Other Labs: CBC, BMP 08/15/16 06:00 08/15/16 06:00 INR, PTT INR 1.35 (0.82-1.09) H 08/15/16 06:00 Assessment/Plan CELLULITIS OF B/L LOWER EXTREMITY IV ABX SURGERY AND ID F/U AFIB ON AC AND RATE CONTROL LOVENOX AND METOPROLOL BRIDGE TO COUMADIN SNF
[2016-08-15] MEDS: ALBUTEROL SO4 2.5/IPRATROPIUM 0.5 INH SOL 3 ML VIAL.NEB. NEB PRN (19:11)
[2016-08-15] MEDS: SENNOSIDES 8.6MG TABLET (FP) PO SCH (22:24)
[2016-08-16] MEDS: CEFAZOLIN 2 GM/D5W 50 ML IVPB SCH ×2 (02:30→09:12)
[2016-08-16 07:32] LABS: INR 1.37 (0.82-1.09); PROTHROMBIN TIME (PATIENT) 15.2 SEC (9.98-11.88)
[2016-08-16] MEDS: ENOXAPARIN NA (PORCINE) 100 MG/1 ML DISP.SYRIN SQ SCH (09:13)
[2016-08-16] MEDS: POLYETHYLENE GLYCOL 3350 119 GM BTL PO SCH (09:13)
[2016-08-16] MEDS: METOPROLOL TARTRATE 50 MG TABLET (FP) PO SCH (09:13)
[2016-08-16] MEDS: SILVER SULFADIAZINE 1% TOP CREAM 50 GM JAR TP SCH (09:14)
--- NOTE | 2016-08-16 09:59 | PN ---
Progress Note, Physician Chief Complaint: AWAKE ALERT X 2 CONFUSED - Current Medication List Current Medications: Active Medications Albuterol/Ipratropium (Duoneb -) 1 amp NEB Q4H PRN PRN Reason: SHORTNESS OF BREATH Last Admin: 08/15/16 19:11 Dose: 1 amp Enoxaparin Sodium (Lovenox -) 100 mg SQ Q12H [facility] Last Admin: 08/16/16 09:13 Dose: 100 mg Cefazolin Sodium/Dextrose (Ancef 2 Gm Premixed Ivpb -) 50 mls @ 100 mls/hr IVPB Q8H-IV [facility] Last Admin: 08/16/16 09:12 Dose: 100 mls/hr Metoprolol Tartrate (Lopressor -) 50 mg PO BID [facility] Last Admin: 08/16/16 09:13 Dose: 50 mg Polyethylene Glycol (Miralax (For Daily Use) -) 17 gm PO DAILY [facility] Last Admin: 08/16/16 09:13 Dose: Not Given Senna (Senna -) 2 tab PO HS [facility] Last Admin: 08/15/16 22:24 Dose: 2 tab Silver Sulfadiazine (Silvadene -) 1 applic TP DAILY [facility] Last Admin: 08/16/16 09:14 Dose: 1 applic Sodium Phosphate (Fleet Adult Rectal Enema -) 133 ml [place] DAILY PRN PRN Reason: CONSTIPATION Warfarin Sodium (Coumadin -) 5 mg PO DAILY@1800 [facility] Last Admin: 08/15/16 17:15 Dose: 5 mg - Objective Vital Signs: Vital Signs Temperature 98.0 F 08/16/16 05:37 Pulse Rate 90 08/16/16 05:37 Respiratory Rate 20 08/16/16 05:37 Blood Pressure 132/80 08/16/16 05:37 O2 Sat by Pulse Oximetry (%) 97 08/15/16 20:35 Constitutional: Yes: No Distress Eyes: Yes: WNL HENT: Yes: WNL Neck: Yes: WNL Cardiovascular: Yes: Pulse Irregular Respiratory: Yes: WNL Gastrointestinal: Yes: WNL Genitourinary: Yes: WNL Musculoskeletal: Yes: WNL Extremities: Yes: Erythema Edema: Yes Edema: LLE: 1+, RLE: 1+ Peripheral Pulses WNL: Yes Integumentary: Yes: Erythema Wound/Incision: Yes: Open to air, Draining, Reddened, Unapproximated Neurological: Yes: Pre-Existing Deficit ...Motor Strength: LLE, RLE Psychiatric: Yes: Agitated Labs: CBC, BMP 08/15/16 06:00 08/15/16 06:00 INR, PTT INR 1.37 (0.82-1.09) H 08/16/16 05:35 Assessment/Plan BRIDGE LOVENOX TO COUMADIN PO ABX PT EVAL ID AND VASC SX FOLLOW UP OUTPATIENT SCHIZO/BIPOLAR WELL CONTROLLED
--- NOTE | 2016-08-16 10:04 | DS ---
Physical Examination Vital Signs: Vital Signs Temperature 98.0 F 08/16/16 05:37 Pulse Rate 90 08/16/16 05:37 Respiratory Rate 20 08/16/16 05:37 Blood Pressure 132/80 08/16/16 05:37 O2 Sat by Pulse Oximetry (%) 97 08/15/16 20:35 Findings/Remarks: SEE PROGRESS NOTES Constitutional: Yes: No Distress Labs: CBC, BMP 08/15/16 06:00 08/15/16 06:00 Discharge Summary Reason For Visit: AFIB/ CELLULITIS OF RLE/ CELLULITIS OF LLE Current Active Problems Atrial fibrillation (Acute) Cellulitis of leg without foot, left (Acute) Cellulitis of leg without foot, right (Acute) HTN (hypertension) with goal to be determined (Acute) Seizure (Acute) Procedures: Principal: SONO Other Procedures: LABS/CX Hospital Course: ADMITTED WITH VASC SX AND ID WORKUP FOR LEG SWELLING, ULCERS, ERYTHEMA INFECTION CELLULITIS, TREATED WITH IV ABX AND WILL CHANGE TO PO ABX AND SNF FOR PHYSICAL THERAPY. LOVENOX UNTIL INR IS 2.0-3.0. THEN STOP LOVENOX CONTINUE COUMADIN ONLY. - Instructions Diet, Activity, Other Instructions: ADA/LOW SALT Referrals: Dana Serna MD [Staff Physician] - Disposition: [facility] - Home Medications Comprehensive Discharge Medication List: Ambulatory Orders NK [No Known Home Medication] 08/12/16 LOVENOX AND COUMADIN UNTIL INR 2.0-3.0 THEN STOP LOVENOX. VASC SX FOLLOW UP AT [facility]
[2016-08-16] MEDS ORDERED: LACTOBACILLUS ACIDOPHILUS 1 EACH TAB (FP) PO SCH (11:00)
[2016-08-16] MEDS ORDERED: FLUCONAZOLE 50 MG TABLET PO ONE (11:00)
[2016-08-16 11:17] VITALS: BP 164/80; PULSE 116; TEMP 98
[2016-08-16] MEDS ORDERED: AMOX TR/POT CLAV 875MG/125MG TABLETS (FP) PO SCH (17:30)
--- NOTE | 2016-08-18 16:20 | DS ---
Physical Examination Vital Signs: Vital Signs Temperature 98 F 08/16/16 09:00 Pulse Rate 116 H 08/16/16 09:00 Respiratory Rate 20 08/16/16 09:00 Blood Pressure 164/80 08/16/16 09:00 O2 Sat by Pulse Oximetry (%) 94 L 08/16/16 09:00 Findings/Remarks: addendum to discharge summary and diagnosis Labs: CBC, BMP 08/15/16 06:00 08/15/16 06:00 Discharge Summary Reason For Visit: AFIB/ CELLULITIS OF RLE/ CELLULITIS OF LLE DIASTOLIC FAILURE WITH NORMAL EF% ACUTE ATRIAL FIBRILLATION ACUTE ON CHRONIC CELLULITIS OF LEGS BIPOLAR D/O HYPERTENSION ESSENTIAL UNSTEADY GAIT - Instructions Diet, Activity, Other Instructions: ADA/LOW SALT Referrals: Dana Serna MD [Staff Physician] - Disposition: [facility] - Home Medications Comprehensive Discharge Medication List: Ambulatory Orders NK [No Known Home Medication] 08/12/16
== END 2016-08-16 13:42 | DRG 603 ==
LOC: JER 11:57 → JERBED 16:00 → J4W 20:16
PROVIDERS: ADMIT Family Medicine; ATTEND Family Medicine
DX: L03.116 Cellulitis of left lower limb (principal); I50.32 Chronic diastolic (congestive) heart failure; L03.115 Cellulitis of right lower limb; I25.10 Atherosclerotic heart disease of native coronary artery without angina pectoris; Z87.891 Personal history of nicotine dependence; I48.91 Unspecified atrial fibrillation; I11.0 Hypertensive heart disease with heart failure; G40.909 Epilepsy, unspecified, not intractable, without status epilepticus; F31.9 Bipolar disorder, unspecified
CPT/HCPCS: 36415; 71010-TC; 80053; 80061; 81003; 81015; 82550; 83721; 83880; 84443; 84484; 85025; 85027; 85610; 85651; 85730; 87040; 87086; 90670; 93005; 93010; 93306-TC; 93970-TC; 94640; 97116-GP; 97161-GP; 99283-25; G0008; J1644; Q2037

== ENCOUNTER 2016-11-04 10:43 | Emergency (ER) | payer OTHER ==
[2016-11-04 11:03] VITALS: BMI 34.9
--- NOTE | 2016-11-04 12:40 | PDOC ---
History of Present Illness - General Chief Complaint: Wound Infection Stated Complaint: WOUND INFECTION Time Seen by Provider: 11/04/16 11:15 - History of Present Illness Initial Comments: 11/04/16 12:14 CHIEF COMPLAINT: cellulitis to BL LE HISTORY OF PRESENT ILLNESS: 81 yo F with hx of HTN presents to ED with cellulitis of bilateral legs. Per patient's home health aide, when she came in this morning the patient's legs were "kind of purple, and her feet were cold." Patient was admitted to this hospital 3 months ago for cellulitis and discharged to [facility]. Patient denies any pain, fever, chills, nausea, vomiting, diarrhea and states "I do not want to be admitted to the hospital, I have an appointment with the wound care center in 3 days." PAST MEDICAL HISTORY: HTN FAMILY HISTORY: Denies SOCIAL HISTORY: Former smoker, quit 10 years ago. Denies alcohol, illicit drug use. SURGICAL HISTORY: vascular surgery to left leg ALLERGIES: No known drug allergies REVIEW OF SYSTEMS General/Constitutional: Denies fever or chills. Denies weakness, weight change. HEENT: Denies change in vision. Denies ear pain or discharge. Denies sore throat. Cardiovascular: Denies chest pain or shortness of breath. Respiratory: Denies cough, wheezing, or hemoptysis. Gastrointestinal: Denies nausea, vomiting, diarrhea or constipation. Denies rectal bleeding. Genitourinary: Denies dysuria, frequency, or change in urination. Musculoskeletal: Denies joint or muscle swelling or pain. Denies neck or back pain. Skin: "I've had this cellulitis since August, it got better but it's come back." PHYSICAL EXAM General Appearance: Well-appearing, appropriately dressed. No apparent distress , no intoxication. HEENT: EOMI, PERRLA, normal ENT inspection, normal voice, TMs normal, pharynx normal. No conjunctival pallor. No photophobia, scleral icterus. Respiratory/Chest: Lungs CTAB. Cardiovascular: RRR. S1, S2. Vascular Pulses: Dorsalis-Pedis (R): non-palpable DP, Dorsalis-Pedis (L): 2+ Gastrointestinal/Abdominal: Normal bowel sounds. Abdomen soft, non-distended. No tenderness or rebound tenderness. No organomegaly, pulsatile mass, guarding , hernia, hepatomegaly, splenomegaly. Lymphatic: No adenopathy, tenderness. Musculoskeletal/Extremities: Erythema and pitting edema to b/l LE from up to level of knee with weeping to posterior R calf.FROM of all extremities, normal capillary refill. No tenderness to extremities, deformity. Integumentary: Appropriate color, dry, warm. 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 Fully oriented, alert. Appropriate mood/affect. Motor strength 5/5. No appreciable EOM palsy, facial droop or sensory deficit. Past History - Past Medical History Allergies/Adverse Reactions: Allergies Allergy/AdvReac Type Severity Reaction Status Date / Time No Known Allergies Allergy Verified 11/04/16 10:55 Home Medications: Ambulatory Orders Clindamycin [Cleocin -] 300 mg PO Q6HPO #28 capsule 11/04/16 Metoprolol Succinate [Toprol Xl] 50 mg PO BID 11/04/16 Cardiac Disorders: Yes (IRREGULAR HEAR BEAT) HTN: Yes Seizures: Yes - Surgical History Orthopedic Surgery: Yes (?hip surgery) - Psycho/Social/Smoking Cessation Hx Suicidal Ideation: No Smoking History: Former smoker Have you smoked in the past 12 months: No Information on smoking cessation initiated: No Hx Alcohol Use: No Drug/Substance Use Hx: No Substance Use Type: None Hx Substance Use Treatment: No *Physical Exam - Vital Signs Last Vital Signs Temp Pulse Resp BP Pulse Ox 98.7 F 60 19 162/79 90 L 11/04/16 10:55 11/04/16 10:55 11/04/16 10:55 11/04/16 10:55 11/04/16 10:55 ED Treatment Course - LABORATORY CBC & Chemistry Diagram: 11/04/16 12:17 11/04/16 12:17 - RADIOLOGY Radiology Studies Ordered: Category Date Time Status CHEST PA & LAT [RAD] Stat Radiology 11/04/16 12:06 Ordered DUPLEX VASCUL US-2LEGS [US] Stat Ultrasound 11/04/16 12:07 Ordered Medical Decision Making - Medical Decision Making 11/04/16 12:40 81 yo F with hx of HTN presents to ED with cellulitis of bilateral legs. -CBC, CMP, lactic acid -Vasc study b/l legs Labs unremarkable 11/04/16 15:38 Vasc study negative for DVT. Advised patient to f/u with wound care clinic as planned. Advised patient of signs and symptoms for return to ER; patient verbalized understanding and agrees to plan. 11/04/16 15:40 *DC/Admit/Observation/Transfer Diagnosis at time of Disposition: Cellulitis of leg without foot, right, Cellulitis of leg without foot, left - Discharge Dispostion Disposition: HOME Condition at time of disposition: Stable - Prescriptions Prescriptions: Clindamycin [Cleocin -] 300 mg PO Q6HPO #28 capsule - Referrals Referrals: Dana Serna MD [Primary Care Provider] - - Patient Instructions Printed Discharge Instructions: DI for Wound Infection Additional Instructions: Please follow up with Dr. Serna and the wound care clinic as planned. If you experience ANY fever, nausea, vomiting, diarrhea, or loss of sensation to your legs, please return to the ER immediately.
[2016-11-04 12:50] LABS: BASOPHIL 0.8 % (0-2.0); EOSINOPHIL 1.8 % (0-4.5); MCH 29.8 pg (25.7-33.7); MCHC 32.6 g/dl (32.0-36.0); MEAN CELL VOLUME 91.4 fl (80-96); MEAN PLT VOLUME 8.8 fl (7.5-11.1); NEUTROPHILS 72.7 % (42.8-82.8); PLATELET COUNT 244 K/MM3 (134-434); RDW 15.6 % (11.6-15.6)
[2016-11-04 13:02] LABS: ALBUMIN 3.5 g/dl (3.4-5.0); ALK PHOS 76 U/L (45-117); ANION GAP 8 (8-16); BILIRUBIN,TOTAL 0.7 mg/dL (0.2-1.0); CALCIUM 8.6 mg/dL (8.5-10.1); CO2 31 mmol/L (21-32); COCKROFT - GAULT 125.2135; CREATININE 0.6 mg/dL (0.55-1.02); GLUCOSE,RANDOM 92 mg/dL (74-106); SGOT/AST 15 U/L (15-37); SGPT/ALT 22 U/L (12-78); TOT PROT 7.2 g/dl (6.4-8.2)
[2016-11-04 16:37] VITALS: BP 165/87; PULSE 83; TEMP 98
== END 2016-11-04 16:35 | disposition home or self-care (01) ==
LOC: JER 10:43
DX: L03.116 Cellulitis of left lower limb (principal); L03.115 Cellulitis of right lower limb; I10 Essential (primary) hypertension; Z86.69 Personal history of other diseases of the nervous system and sense organs
CPT/HCPCS: 36415; 71020-TC; 80053; 83605; 85025; 93970-TC; 99282-25